=== PATIENT | male | born 1965 | race Caucasian/White ===

== ENCOUNTER 2018-12-13 11:02 | Observation (INO) | payer OTHER ==
[2018-12-13 11:59] LABS: ADD MAN DIFF? NO
[2018-12-13] MEDS ORDERED: NITROGLYCERIN (SL) 0.4 MG TAB SL (12:00)
[2018-12-13] MEDS: NITROGLYCERIN 2% 1 GM OINT PKT TD ×2 (12:04→12:05)
[2018-12-13] MEDS: ASPIRIN 81 MG TAB PO (12:04)
[2018-12-13] MEDS: FUROSEMIDE 40 MG INJ IV ×2 (12:05→18:43)
[2018-12-13 12:07] LABS: BASOPHILS % 0.3 % (0.0-2.0); EOSINOPHILS # 0.1 10^3/ul (0.0-0.5); EOSINOPHILS % 0.8 % (0.0-7.0); HEMATOCRIT 44.2 % (42.0-52.0); HEMOGLOBIN 14.6 g/dl (14.0-18.0); LYMPHOCYTES # 2.9 10^3/ul (0.8-2.9); LYMPHOCYTES % 22.6 % (15.0-51.0); MEAN CORPUSCULAR HEMOGLOBIN 29.7 pg (29.0-33.0); MEAN CORPUSCULAR VOLUME 89.8 fl (82.0-101.0); MEAN PLATELET VOLUME 9.7 fl (7.4-10.4); MONOCYTE # 1.1 10^3/ul (0.3-0.9); MONOCYTES % 8.1 % (0.0-11.0); NEUTROPHIL # 8.8 10^3/ul (1.6-7.5); NEUTROPHILS % 67.7 % (39.0-77.0); PLATELET COUNT 379 10^3/UL (140-415); RED BLOOD COUNT 4.92 10^6/ul (4.70-6.10); RED CELL DISTRIBUTION WIDTH 14.6 % (11.5-14.5)
[2018-12-13 12:21] LABS: ANION GAP 10 (5-13); BLOOD UREA NITROGEN 25 mg/dl (7-20); CALCIUM 10.3 mg/dl (8.4-10.2); CARBON DIOXIDE 29 mmol/L (21-31); CHLORIDE 101 mmol/L (97-110); Estimated GFR 33 mL/min (>60); GLUCOSE 114 mg/dl (70-220); POTASSIUM 4.1 mmol/L (3.5-5.1); SODIUM 140 mmol/L (135-144)
[2018-12-13 12:31] LABS: TROPONIN-I 0.032 ng/ml (0.000-0.120)
[2018-12-13] MEDS ORDERED: ONDANSETRON 4 MG INJ (13:09)
[2018-12-13] MEDS: ONDANSETRON 4 MG INJ IV ×2 (13:11→13:12)
[2018-12-13] MEDS: morphine 4 MG/ML VIAL IV (13:12)
[2018-12-13] MEDS ORDERED: ACETAMINOPHEN 325 MG TAB PO (14:00)
[2018-12-13] MEDS ORDERED: ONDANSETRON 4 MG INJ IV ×2 (14:00→18:30)
[2018-12-13 14:08] LABS: B-TYPE NATRIURETIC PEPTIDE 586 PG/ML (0-125)
[2018-12-13] MEDS: METOPROLOL 50 MG TAB PO (17:29)
[2018-12-13 18:30] LABS: CREATINE KINASE 52 IU/L (23-200)
[2018-12-13] MEDS ORDERED: ZOLPIDEM 5 MG TAB PO (18:30)
[2018-12-13 18:42] LABS: CK-MB 1.04 ng/ml (0.0-2.4); TROPONIN-I 0.017 ng/ml (0.000-0.120)
[2018-12-13] MEDS: POTASSIUM CHLORIDE (SR) 20 MEQ TAB PO (18:44)
[2018-12-14] MEDS: FUROSEMIDE 40 MG INJ IV ×2 (05:28→13:59)
[2018-12-14 08:00] LABS: BARBITURATES Negative (NEGATIVE); BENZODIAZEPINES Negative (NEGATIVE); CANNABINOIDS Negative (NEGATIVE); COCAINE Negative (NEGATIVE); OPIATES Positive (NEGATIVE)
[2018-12-14 08:05] LABS: AMPHETAMINE/METHAMPHETAMINE POSITIVE (NEGATIVE)
[2018-12-14] MEDS: ASPIRIN 81 MG TAB PO (08:06)
[2018-12-14] MEDS: METOPROLOL 50 MG TAB PO ×2 (08:07→17:37)
[2018-12-14] MEDS: POTASSIUM CHLORIDE (SR) 20 MEQ TAB PO (08:07)
[2018-12-14 11:16] LABS: ANION GAP 7 (5-13); BLOOD UREA NITROGEN 38 mg/dl (7-20); CALCIUM 9.7 mg/dl (8.4-10.2); CARBON DIOXIDE 32 mmol/L (21-31); CHLORIDE 100 mmol/L (97-110); CREATININE 1.65 mg/dl (0.61-1.24); Estimated GFR 44 mL/min (>60); GLUCOSE 119 mg/dl (70-220); POTASSIUM 4.3 mmol/L (3.5-5.1); SODIUM 139 mmol/L (135-144)
[2018-12-15] MEDS ORDERED: FUROSEMIDE 40 MG TAB PO (09:00)
== END 2018-12-14 18:00 | disposition home or self-care (01) ==
LOC: E/R 11:02 → TEL 13:32
DX: R07.89 Other chest pain (principal); I13.0 Hypertensive heart and chronic kidney disease with heart failure and stage 1 through stage 4 chronic kidney disease, or unspecified chronic kidney disease; N18.3 Chronic kidney disease, stage 3 (moderate); I50.31 Acute diastolic (congestive) heart failure; F17.200 Nicotine dependence, unspecified, uncomplicated; E66.01 Morbid (severe) obesity due to excess calories; Z68.42 Body mass index [BMI] 45.0-49.9, adult; N17.9 Acute kidney failure, unspecified; F15.10 Other stimulant abuse, uncomplicated; F41.9 Anxiety disorder, unspecified; R00.0 Tachycardia, unspecified
CPT/HCPCS: 36415; 71045; 76775; 80048; 80307; 82550; 82553; 83880; 84484; 85025; 93005; 93306; 93971; 96374; 96375; 99285-25; G0378